=== PATIENT | female | born 1935 | race Caucasian/White ===

== ENCOUNTER 2017-04-19 10:40 | Inpatient (IN) | payer MEDICARE, OTHER ==
[2017-04-19] MEDS ORDERED: NITROGLYCERIN (SL) 0.4 MG TAB SL (11:00)
[2017-04-19] MEDS: FUROSEMIDE 40 MG INJ IV (11:00)
[2017-04-19 11:53] LABS: ADD MAN DIFF? NO
[2017-04-19 11:55] LABS: BASOPHILS % 0.2 % (0.0-2.0); EOSINOPHILS % 0.4 % (0.0-7.0); HEMATOCRIT 34.8 % (37.0-47.0); HEMOGLOBIN 11.3 g/dl (12.0-16.0); LYMPHOCYTES # 1.1 10^3/ul (0.8-2.9); LYMPHOCYTES % 13.5 % (15.0-51.0); MEAN CORPUSCULAR HEMOGLOBIN 28.9 pg (29.0-33.0); MEAN CORPUSCULAR HGB CONC 32.5 g/dl (32.0-37.0); MEAN PLATELET VOLUME 11.9 fl (7.4-10.4); MONOCYTE # 0.7 10^3/ul (0.3-0.9); MONOCYTES % 8.7 % (0.0-11.0); NEUTROPHIL # 6.4 10^3/ul (1.6-7.5); PLATELET COUNT 130 10^3/UL (140-415); RED BLOOD COUNT 3.91 10^6/ul (4.20-5.40); RED CELL DISTRIBUTION WIDTH 13.8 % (11.5-14.5)
[2017-04-19 11:55] LABS: WHITE BLOOD COUNT 8.3 10^3/ul (4.8-10.8)
[2017-04-19] MEDS: NITROGLYCERIN 2% 1 GM OINT PKT TD (12:02)
[2017-04-19 12:18] LABS: ANION GAP 14 (8-16); BLOOD UREA NITROGEN 18 mg/dl (7-20); CARBON DIOXIDE 26 mmol/L (21-31); CHLORIDE 102 mmol/L (97-110); CREATININE 1.13 mg/dl (0.44-1.00); GLUCOSE 210 mg/dl (70-220); POTASSIUM 4.8 mmol/L (3.5-5.1); SODIUM 137 mmol/L (135-144)
[2017-04-19 12:29] LABS: TROPONIN-I 0.038 ng/ml (0.00-0.12)
[2017-04-19] MEDS ORDERED: ONDANSETRON 4 MG INJ IV ×2 (13:30→14:30)
[2017-04-19] MEDS ORDERED: ACETAMINOPHEN 325 MG TAB PO ×2 (13:30→14:30)
[2017-04-19] MEDS ORDERED: DEXTROSE 50% 50 ML SYRINGE IV ×2 (14:30)
[2017-04-19] MEDS ORDERED: GLUCOSE GEL 15 GRAM TUBE PO ×2 (14:30)
[2017-04-19] MEDS ORDERED: GLUCOSE GEL 15 GRAM TUBE BUCCAL (14:30)
[2017-04-19] MEDS ORDERED: GLUCAGON 1 MG INJ IM (14:30)
[2017-04-19] MEDS ORDERED: ALBUTEROL/IPRATROPIUM (NEB) 3 ML AMP HHN (14:30)
[2017-04-19] MEDS ORDERED: INSULIN GLARGINE [LANtus] 3 ML PEN SC (14:30)
[2017-04-19] MEDS ORDERED: NACL 0.9% 3 ML SYG IV (14:30)
[2017-04-19] MEDS ORDERED: morphine 2 MG INJ IV (14:30)
[2017-04-19] MEDS: BUMETANIDE 1 MG INJ IV ×2 (15:22→20:14)
[2017-04-19] MEDS: METHYLPREDNISOLONE 40 MG INJ IV (15:23)
[2017-04-19 15:33] LABS: AADO2 Arterial 78.1 mmHg (7.0-24.0); Allen Test ACCEPTAB; Arterial Base Excess 0.4 mmol/L (-3.0-3); Arterial Blood Gas Oxygen Sat 96.3 mmHG (95.0-100.0); Arterial COHb 0.4 % (0.0-3.0); Arterial Fraction of Oxyhgb 95.8 % (93.0-99.0); Arterial HCO3 24.2 mmol/L (22.0-26.0); Arterial MetHb 0.1 % (0.0-1.5); Arterial Total Hemglobin 12.6 g/dl (12.0-18.0); Arterial pCO2 36.6 mmhg (35-45); MODE NASAL CANNULA; Site Right Radial
[2017-04-19] MEDS: INSULIN ASPART [NOVOLOG] 3 ML PEN SC ×2 (18:05→20:33)
[2017-04-19] MEDS: NPH, HUMAN INSULIN ISOPHANE 3ML VIAL SC (18:31)
[2017-04-19 19:31] LABS: CREATINE KINASE 85 IU/L (23-200)
[2017-04-19 19:43] LABS: TROPONIN-I 0.051 ng/ml (0.00-0.12)
[2017-04-19] MEDS: FAMOTIDINE 20 MG TAB PO (20:15)
[2017-04-19] MEDS: RIVAROXABAN 20 MG TABLET PO (20:15)
[2017-04-19] MEDS: HEPARIN 5,000 UNIT/0.5 ML VIAL SC (20:33)
[2017-04-19] MEDS: MONTELUKAST 10 MG TAB PO (21:14)
[2017-04-19] MEDS: ALBUTEROL/IPRATROPIUM (NEB) 3 ML AMP HHN (21:57)
[2017-04-19 23:07] LABS: CREATINE KINASE 96 IU/L (23-200)
[2017-04-19 23:19] LABS: CK INDEX 1.7; CK-MB 1.66 ng/ml (0.0-2.4); TROPONIN-I 0.046 ng/ml (0.00-0.12)
[2017-04-20] MEDS: ALBUTEROL/IPRATROPIUM (NEB) 3 ML AMP HHN ×6 (01:10→21:04)
[2017-04-20] MEDS: ACCU-CHEK XX (01:14)
[2017-04-20] MEDS: INSULIN ASPART [NOVOLOG] 3 ML PEN SC ×8 (01:35→20:52)
[2017-04-20] MEDS: BUMETANIDE 1 MG INJ IV ×2 (05:54→17:11)
[2017-04-20] MEDS: HEPARIN 5,000 UNIT/0.5 ML VIAL SC (08:34)
[2017-04-20] MEDS: INSULIN GLARGINE [LANtus] 3 ML PEN SC (08:34)
[2017-04-20] MEDS: CLOPIDOGREL 75 MG TAB PO (08:37)
[2017-04-20] MEDS: AMIODARONE 200 MG TAB PO (08:37)
[2017-04-20] MEDS: FAMOTIDINE 20 MG TAB PO ×2 (08:37→20:50)
[2017-04-20 09:40] LABS: ADD MAN DIFF? NO
[2017-04-20 09:47] LABS: WHITE BLOOD COUNT 8.4 10^3/ul (4.8-10.8)
[2017-04-20 09:47] LABS: HEMATOCRIT 34.2 % (37.0-47.0); HEMOGLOBIN 11.5 g/dl (12.0-16.0); LYMPHOCYTES # 0.7 10^3/ul (0.8-2.9); LYMPHOCYTES % 8.7 % (15.0-51.0); MEAN CORPUSCULAR HEMOGLOBIN 29.5 pg (29.0-33.0); MEAN CORPUSCULAR HGB CONC 33.6 g/dl (32.0-37.0); MEAN CORPUSCULAR VOLUME 87.7 fl (82.0-101.0); MEAN PLATELET VOLUME 12.8 fl (7.4-10.4); MONOCYTE # 0.7 10^3/ul (0.3-0.9); NEUTROPHILS % 82.9 % (39.0-77.0); PLATELET COUNT 143 10^3/UL (140-415)
[2017-04-20 09:59] LABS: HEMOGLOBIN A1C 7.9 % (0-5.9)
[2017-04-20 10:09] LABS: ALANINE AMINOTRANSFERASE 54 IU/L (13-69); ALBUMIN 3.6 g/dl (3.3-4.9); ALBUMIN/GLOBULIN RATIO 0.94; ALKALINE PHOSPHATASE 68 IU/L (42-121); ANION GAP 17 (8-16); ASPARTATE AMINO TRANSFERASE 25 IU/L (15-46); BILIRUBIN,INDIRECT 0.6 mg/dl (0-1.1); BILIRUBIN,TOTAL 0.6 mg/dl (0.2-1.3); BLOOD UREA NITROGEN 23 mg/dl (7-20); CALCIUM 8.7 mg/dl (8.4-10.2); CARBON DIOXIDE 26 mmol/L (21-31); CHLORIDE 97 mmol/L (97-110); CHOL/HDL RATIO 4.4 RATIO; CHOLESTEROL 220 mg/dl (100-200); GLUCOSE 286 mg/dl (70-220); HDL CHOLESTEROL 49 mg/dl (33-92); LDL CHOLESTEROL,CALCULATED 152 mg/dl; MAGNESIUM 2.1 mg/dl (1.7-2.5); PHOSPHORUS 3.2 mg/dl (2.5-4.9); POTASSIUM 4.1 mmol/L (3.5-5.1); SODIUM 136 mmol/L (135-144); TOTAL PROTEIN 7.4 g/dl (6.1-8.1); TRIGLYCERIDES 95 mg/dl (0-149)
[2017-04-20 11:16] LABS: THYROID STIMULATING HORMONE 0.853 MIU/L (0.465-4.680)
[2017-04-20] MEDS: LOSARTAN 25 MG TAB PO (12:00)
[2017-04-20] MEDS: GABAPENTIN 100 MG CAP PO ×2 (12:23→20:50)
[2017-04-20] MEDS: RIVAROXABAN 20 MG TABLET PO (17:26)
[2017-04-20] MEDS: BACLOFEN 10 MG TAB PO (17:38)
[2017-04-20] MEDS: MONTELUKAST 10 MG TAB PO (20:50)
[2017-04-21] MEDS: ALBUTEROL/IPRATROPIUM (NEB) 3 ML AMP HHN ×6 (01:06→20:44)
[2017-04-21] MEDS: ACCU-CHEK XX (02:00)
[2017-04-21] MEDS: BUMETANIDE 1 MG INJ IV ×2 (05:46→05:53)
[2017-04-21] MEDS: INSULIN ASPART [NOVOLOG] 3 ML PEN SC ×7 (08:00→21:00)
[2017-04-21 08:14] LABS: ADD MAN DIFF? NO
[2017-04-21 08:18] LABS: WHITE BLOOD COUNT 8.1 10^3/ul (4.8-10.8)
[2017-04-21 08:18] LABS: BASOPHILS % 0.1 % (0.0-2.0); EOSINOPHILS # 0.2 10^3/ul (0.0-0.5); EOSINOPHILS % 2.6 % (0.0-7.0); HEMATOCRIT 35.6 % (37.0-47.0); HEMOGLOBIN 11.7 g/dl (12.0-16.0); LYMPHOCYTES # 1.7 10^3/ul (0.8-2.9); LYMPHOCYTES % 20.6 % (15.0-51.0); MEAN CORPUSCULAR HEMOGLOBIN 29.5 pg (29.0-33.0); MEAN CORPUSCULAR HGB CONC 32.9 g/dl (32.0-37.0); MEAN CORPUSCULAR VOLUME 89.7 fl (82.0-101.0); MEAN PLATELET VOLUME 12.5 fl (7.4-10.4); MONOCYTE # 0.7 10^3/ul (0.3-0.9); MONOCYTES % 9.2 % (0.0-11.0); NEUTROPHIL # 5.4 10^3/ul (1.6-7.5); NEUTROPHILS % 67.3 % (39.0-77.0); PLATELET COUNT 155 10^3/UL (140-415); RED BLOOD COUNT 3.97 10^6/ul (4.20-5.40); RED CELL DISTRIBUTION WIDTH 13.9 % (11.5-14.5)
[2017-04-21 08:46] LABS: ANION GAP 14 (8-16); BLOOD UREA NITROGEN 34 mg/dl (7-20); CARBON DIOXIDE 29 mmol/L (21-31); CHLORIDE 98 mmol/L (97-110); CREATININE 1.45 mg/dl (0.44-1.00); GLUCOSE 144 mg/dl (70-220); SODIUM 136 mmol/L (135-144)
[2017-04-21] MEDS: INSULIN GLARGINE [LANtus] 3 ML PEN SC (08:58)
[2017-04-21] MEDS: GABAPENTIN 100 MG CAP PO ×2 (09:14→13:18)
[2017-04-21] MEDS: CLOPIDOGREL 75 MG TAB PO (09:14)
[2017-04-21] MEDS: FAMOTIDINE 20 MG TAB PO ×2 (09:15→21:23)
[2017-04-21] MEDS: AMIODARONE 200 MG TAB PO (09:15)
[2017-04-21] MEDS: LOSARTAN 25 MG TAB PO (09:16)
[2017-04-21] MEDS ORDERED: BUMETANIDE 1 MG TAB PO (13:00)
[2017-04-21] MEDS: BUMETANIDE 0.5 MG TAB PO (13:20)
[2017-04-21] MEDS: LINAGLIPTIN 5 MG TABLET PO (15:55)
[2017-04-21] MEDS: RIVAROXABAN 20 MG TABLET PO (18:10)
[2017-04-21] MEDS: REPAGLINIDE 1 MG TAB PO (18:10)
[2017-04-21] MEDS: SALMETEROL/FLUTICASONE 250/50 INHA INH ×2 (18:10→21:22)
[2017-04-21] MEDS: GABAPENTIN 300 MG CAP PO (21:22)
[2017-04-21] MEDS: MONTELUKAST 10 MG TAB PO (21:23)
[2017-04-21] MEDS: METOPROLOL (XL) 25 MG TAB PO (21:23)
[2017-04-22] MEDS: ALBUTEROL/IPRATROPIUM (NEB) 3 ML AMP HHN ×5 (01:52→21:31)
[2017-04-22] MEDS: ACCU-CHEK XX (02:00)
[2017-04-22] MEDS: REPAGLINIDE 1 MG TAB PO ×3 (07:08→17:39)
[2017-04-22] MEDS: INSULIN GLARGINE [LANtus] 3 ML PEN SC (08:33)
[2017-04-22] MEDS: INSULIN ASPART [NOVOLOG] 3 ML PEN SC ×4 (08:34→20:47)
[2017-04-22] MEDS: EMPAGLIFLOZIN 10 MG TABLET PO (08:58)
[2017-04-22] MEDS: CLOPIDOGREL 75 MG TAB PO (08:58)
[2017-04-22] MEDS: SALMETEROL/FLUTICASONE 250/50 INHA INH ×2 (08:59→20:44)
[2017-04-22] MEDS: AMIODARONE 200 MG TAB PO (09:00)
[2017-04-22] MEDS: METOPROLOL (XL) 25 MG TAB PO ×2 (09:00→20:45)
[2017-04-22] MEDS: GABAPENTIN 300 MG CAP PO ×3 (09:01→20:44)
[2017-04-22] MEDS: LINAGLIPTIN 5 MG TABLET PO (09:01)
[2017-04-22] MEDS: FAMOTIDINE 20 MG TAB PO ×2 (09:01→20:44)
[2017-04-22] MEDS: LOSARTAN 25 MG TAB PO (09:09)
[2017-04-22 09:12] LABS: ALANINE AMINOTRANSFERASE 47 IU/L (13-69); ALBUMIN 3.5 g/dl (3.3-4.9); ALBUMIN/GLOBULIN RATIO 0.92; ALKALINE PHOSPHATASE 79 IU/L (42-121); ANION GAP 16 (8-16); ASPARTATE AMINO TRANSFERASE 26 IU/L (15-46); BILIRUBIN,INDIRECT 0.4 mg/dl (0-1.1); BILIRUBIN,TOTAL 0.4 mg/dl (0.2-1.3); BLOOD UREA NITROGEN 41 mg/dl (7-20); CALCIUM 9.5 mg/dl (8.4-10.2); CARBON DIOXIDE 27 mmol/L (21-31); CHLORIDE 98 mmol/L (97-110); CREATININE 1.71 mg/dl (0.44-1.00); GLUCOSE 165 mg/dl (70-220); MAGNESIUM 2.2 mg/dl (1.7-2.5); POTASSIUM 4.4 mmol/L (3.5-5.1); SODIUM 137 mmol/L (135-144); TOTAL PROTEIN 7.3 g/dl (6.1-8.1)
[2017-04-22 09:16] LABS: B-TYPE NATRIURETIC PEPTIDE 1240 PG/ML (0-450)
[2017-04-22] MEDS: BUMETANIDE 0.5 MG TAB PO (10:30)
[2017-04-22] MEDS: RIVAROXABAN 20 MG TABLET PO (17:39)
[2017-04-22] MEDS: GUAIFENESIN/DM 5ML CUP PO (20:53)
[2017-04-22] MEDS: MONTELUKAST 10 MG TAB PO (21:51)
[2017-04-23] MEDS: ACCU-CHEK XX (02:00)
[2017-04-23] MEDS: ALBUTEROL/IPRATROPIUM (NEB) 3 ML AMP HHN ×6 (02:30→20:20)
[2017-04-23] MEDS: INSULIN ASPART [NOVOLOG] 3 ML PEN SC ×4 (08:00→20:13)
[2017-04-23] MEDS: SALMETEROL/FLUTICASONE 250/50 INHA INH ×2 (08:31→20:11)
[2017-04-23] MEDS: EMPAGLIFLOZIN 10 MG TABLET PO (08:32)
[2017-04-23] MEDS: FAMOTIDINE 20 MG TAB PO ×2 (08:32→20:11)
[2017-04-23] MEDS: REPAGLINIDE 1 MG TAB PO ×3 (08:33→17:15)
[2017-04-23] MEDS: GABAPENTIN 300 MG CAP PO ×3 (08:33→20:11)
[2017-04-23] MEDS: LINAGLIPTIN 5 MG TABLET PO (08:33)
[2017-04-23] MEDS: INSULIN GLARGINE [LANtus] 3 ML PEN SC (08:34)
[2017-04-23] MEDS: CLOPIDOGREL 75 MG TAB PO (08:37)
[2017-04-23] MEDS: METOPROLOL (XL) 25 MG TAB PO ×2 (08:37→20:12)
[2017-04-23] MEDS: AMIODARONE 200 MG TAB PO (08:37)
[2017-04-23 11:38] LABS: ANION GAP 14 (8-16); BLOOD UREA NITROGEN 40 mg/dl (7-20); CALCIUM 9.5 mg/dl (8.4-10.2); CARBON DIOXIDE 28 mmol/L (21-31); CHLORIDE 96 mmol/L (97-110); CREATININE 1.66 mg/dl (0.44-1.00); GLUCOSE 199 mg/dl (70-220); POTASSIUM 4.1 mmol/L (3.5-5.1); SODIUM 134 mmol/L (135-144)
[2017-04-23] MEDS: RIVAROXABAN 20 MG TABLET PO (17:15)
[2017-04-23] MEDS: MONTELUKAST 10 MG TAB PO (20:11)
[2017-04-23] MEDS: GUAIFENESIN/DM 5ML CUP PO (23:20)
[2017-04-24] MEDS: ALBUTEROL/IPRATROPIUM (NEB) 3 ML AMP HHN ×5 (00:33→17:52)
[2017-04-24 01:59] LABS: CREATINE KINASE 45 IU/L (23-200)
[2017-04-24 02:12] LABS: CK INDEX 1.4; CK-MB 0.64 ng/ml (0.0-2.4); TROPONIN-I 0.033 ng/ml (0.00-0.12)
[2017-04-24] MEDS: ACCU-CHEK XX (02:23)
[2017-04-24] MEDS: GUAIFENESIN/DM 5ML CUP PO (04:37)
[2017-04-24] MEDS: INSULIN ASPART [NOVOLOG] 3 ML PEN SC ×3 (08:00→17:37)
[2017-04-24] MEDS: CLOPIDOGREL 75 MG TAB PO (08:25)
[2017-04-24] MEDS: EMPAGLIFLOZIN 10 MG TABLET PO (08:25)
[2017-04-24] MEDS: REPAGLINIDE 1 MG TAB PO ×3 (08:25→17:36)
[2017-04-24] MEDS: GABAPENTIN 300 MG CAP PO ×2 (08:25→12:35)
[2017-04-24] MEDS: LINAGLIPTIN 5 MG TABLET PO (08:26)
[2017-04-24] MEDS: FAMOTIDINE 20 MG TAB PO (08:26)
[2017-04-24] MEDS: METOPROLOL (XL) 25 MG TAB PO (08:27)
[2017-04-24] MEDS: AMIODARONE 200 MG TAB PO (08:27)
[2017-04-24] MEDS: SALMETEROL/FLUTICASONE 250/50 INHA INH (08:28)
[2017-04-24 08:29] LABS: ADD MAN DIFF? NO
[2017-04-24] MEDS: INSULIN GLARGINE [LANtus] 3 ML PEN SC (08:29)
[2017-04-24 08:50] LABS: WHITE BLOOD COUNT 6.7 10^3/ul (4.8-10.8)
[2017-04-24 08:50] LABS: EOSINOPHILS # 0.2 10^3/ul (0.0-0.5); EOSINOPHILS % 3.6 % (0.0-7.0); HEMATOCRIT 35.5 % (37.0-47.0); HEMOGLOBIN 11.8 g/dl (12.0-16.0); LYMPHOCYTES # 1.6 10^3/ul (0.8-2.9); LYMPHOCYTES % 23.8 % (15.0-51.0); MEAN CORPUSCULAR HEMOGLOBIN 29.7 pg (29.0-33.0); MEAN CORPUSCULAR HGB CONC 33.2 g/dl (32.0-37.0); MEAN CORPUSCULAR VOLUME 89.4 fl (82.0-101.0); MEAN PLATELET VOLUME 12.3 fl (7.4-10.4); MONOCYTE # 0.7 10^3/ul (0.3-0.9); MONOCYTES % 10.2 % (0.0-11.0); NEUTROPHIL # 4.1 10^3/ul (1.6-7.5); NEUTROPHILS % 62.1 % (39.0-77.0); PLATELET COUNT 164 10^3/UL (140-415); RED BLOOD COUNT 3.97 10^6/ul (4.20-5.40)
[2017-04-24 09:34] LABS: CREATINE KINASE 43 IU/L (23-200)
[2017-04-24 09:47] LABS: CK INDEX 1.6; CK-MB 0.67 ng/ml (0.0-2.4); TROPONIN-I 0.037 ng/ml (0.00-0.12)
[2017-04-24 12:48] LABS: ANION GAP 15 (8-16); BLOOD UREA NITROGEN 34 mg/dl (7-20); CALCIUM 9.7 mg/dl (8.4-10.2); CARBON DIOXIDE 29 mmol/L (21-31); CHLORIDE 100 mmol/L (97-110); CREATININE 1.54 mg/dl (0.44-1.00); GLUCOSE 112 mg/dl (70-220); POTASSIUM 4.7 mmol/L (3.5-5.1); SODIUM 139 mmol/L (135-144)
[2017-04-24 13:00] LABS: CREATINE KINASE 45 IU/L (23-200)
[2017-04-24 13:13] LABS: CK INDEX 1.5; CK-MB 0.68 ng/ml (0.0-2.4); TROPONIN-I 0.022 ng/ml (0.00-0.12)
== END 2017-04-24 18:42 | disposition home health service (06) | DRG 291 ==
LOC: E/R 10:40 → MS4 13:27
DX: I13.0 Hypertensive heart and chronic kidney disease with heart failure and stage 1 through stage 4 chronic kidney disease, or unspecified chronic kidney disease (principal); I50.23 Acute on chronic systolic (congestive) heart failure; J96.91 Respiratory failure, unspecified with hypoxia; N17.9 Acute kidney failure, unspecified; J45.41 Moderate persistent asthma with (acute) exacerbation; Z68.41 Body mass index [BMI] 40.0-44.9, adult; E11.21 Type 2 diabetes mellitus with diabetic nephropathy; Z95.5 Presence of coronary angioplasty implant and graft; D63.8 Anemia in other chronic diseases classified elsewhere; E78.5 Hyperlipidemia, unspecified; Z91.14 Patient's other noncompliance with medication regimen; E66.9 Obesity, unspecified; I48.0 Paroxysmal atrial fibrillation; Z79.01 Long term (current) use of anticoagulants; N18.2 Chronic kidney disease, stage 2 (mild)
CPT/HCPCS: 36415; 36600; 71010; 80048; 80053; 80061; 82550; 82553; 82803; 82962; 83036; 83735; 83880; 84100; 84443; 84484; 85025; 93005; 93306; 93970; 94640; 96374; 96375; 97110; 97116; 97530; 99217; 99285-25; G0378

== ENCOUNTER 2017-10-12 12:45 | Inpatient (IN) | payer MEDICARE, OTHER ==
[2017-10-12] MEDS ORDERED: NITROGLYCERIN (SL) 0.4 MG TAB SL (13:00)
[2017-10-12 13:13] LABS: ADD MAN DIFF? NO; BASOPHILS % 0.1 % (0.0-2.0); EOSINOPHILS % 0.5 % (0.0-7.0); HEMATOCRIT 36.9 % (37.0-47.0); HEMOGLOBIN 11.6 g/dl (12.0-16.0); LYMPHOCYTES # 1.7 10^3/ul (0.8-2.9); LYMPHOCYTES % 21.1 % (15.0-51.0); MEAN CORPUSCULAR HEMOGLOBIN 28.6 pg (29.0-33.0); MEAN CORPUSCULAR HGB CONC 31.4 g/dl (32.0-37.0); MEAN CORPUSCULAR VOLUME 91.1 fl (82.0-101.0); MEAN PLATELET VOLUME 12.3 fl (7.4-10.4); MONOCYTE # 0.8 10^3/ul (0.3-0.9); MONOCYTES % 9.8 % (0.0-11.0); NEUTROPHIL # 5.4 10^3/ul (1.6-7.5); NEUTROPHILS % 67.9 % (39.0-77.0); PLATELET COUNT 161 10^3/UL (140-415); RED BLOOD COUNT 4.05 10^6/ul (4.20-5.40); RED CELL DISTRIBUTION WIDTH 14.9 % (11.5-14.5)
[2017-10-12] MEDS: ASPIRIN 81 MG TAB PO (13:19)
[2017-10-12] MEDS: FUROSEMIDE 40 MG INJ IV ×2 (13:19→18:35)
[2017-10-12] MEDS: NITROGLYCERIN 2% 1 GM OINT PKT TD (13:19)
[2017-10-12 13:34] LABS: ANION GAP 15 (8-16); BLOOD UREA NITROGEN 28 mg/dl (7-20); CALCIUM 8.8 mg/dl (8.4-10.2); CARBON DIOXIDE 25 mmol/L (21-31); CHLORIDE 101 mmol/L (97-110); CREATININE 1.56 mg/dl (0.44-1.00); GLUCOSE 267 mg/dl (70-220); POTASSIUM 4.1 mmol/L (3.5-5.1); SODIUM 137 mmol/L (135-144)
[2017-10-12 13:41] LABS: LACTIC ACID 3.5 mmol/L (0.5-2.0)
[2017-10-12 13:45] LABS: TROPONIN-I 0.075 ng/ml (0.000-0.120)
[2017-10-12] MEDS: DILTIAZEM 50 MG INJ IV (14:54)
[2017-10-12] MEDS: DILTIAZEM 30 MG TAB PO (14:54)
[2017-10-12] MEDS ORDERED: ACETAMINOPHEN 325 MG TAB PO ×2 (15:00→17:30)
[2017-10-12] MEDS ORDERED: ONDANSETRON 4 MG INJ IV (15:00)
[2017-10-12] MEDS ORDERED: DILTIAZEM-D5W 125MG/125ML DRIP 125 ML IV (17:30)
[2017-10-12] MEDS ORDERED: HYDROCODONE/APAP (5/325) TAB PO (17:30)
[2017-10-12] MEDS ORDERED: NACL 0.9% 3 ML SYG IV (17:30)
[2017-10-12] MEDS ORDERED: ONDANSETRON 4 MG TAB PO (17:30)
[2017-10-12 17:51] LABS: HEMOGLOBIN A1C 8.5 % (0-5.9)
[2017-10-12] MEDS ORDERED: GLUCOSE GEL 15 GRAM TUBE PO ×2 (18:00)
[2017-10-12] MEDS ORDERED: GLUCAGON 1 MG INJ IM (18:00)
[2017-10-12] MEDS ORDERED: DEXTROSE 50% 50 ML SYRINGE IV ×2 (18:00)
[2017-10-12] MEDS ORDERED: GLUCOSE GEL 15 GRAM TUBE BUCCAL (18:00)
[2017-10-12 18:08] LABS: B-TYPE NATRIURETIC PEPTIDE 4490 PG/ML (0-450)
[2017-10-12 18:08] LABS: LACTIC ACID 2.9 mmol/L (0.5-2.0)
[2017-10-12] MEDS: RIVAROXABAN 20 MG TABLET PO (18:36)
[2017-10-12] MEDS: DILTIAZEM-D5W 125MG/125ML DRIP 125 ML IV (18:59)
[2017-10-12] MEDS: INSULIN ASPART [NOVOLOG] 3 ML PEN SC ×2 (19:06→22:02)
[2017-10-12 19:53] LABS: LACTIC ACID 2.4 mmol/L (0.5-2.0)
[2017-10-12 20:18] LABS: TROPONIN-I 0.121 ng/ml (0.000-0.120)
[2017-10-12] MEDS: MONTELUKAST 10 MG TAB PO (20:20)
[2017-10-12] MEDS: RANOLAZINE (SR) 500 MG TAB PO (20:20)
[2017-10-12] MEDS: DOXAZOSIN 1 MG TAB PO ×2 (20:22→21:00)
[2017-10-12] MEDS: SACUBITRIL/VALSARTAN (24mg-26mg) TABLET PO (21:00)
[2017-10-13 01:43] LABS: TROPONIN-I 0.144 ng/ml (0.000-0.120)
[2017-10-13] MEDS: ACCU-CHEK XX (02:00)
[2017-10-13] MEDS: FUROSEMIDE 40 MG INJ IV ×2 (06:27→17:05)
[2017-10-13 06:42] LABS: ADD MAN DIFF? NO
[2017-10-13 06:50] LABS: BASOPHILS % 0.1 % (0.0-2.0); EOSINOPHILS # 0.1 10^3/ul (0.0-0.5); EOSINOPHILS % 1.8 % (0.0-7.0); HEMATOCRIT 32.8 % (37.0-47.0); HEMOGLOBIN 10.4 g/dl (12.0-16.0); LYMPHOCYTES # 1.6 10^3/ul (0.8-2.9); LYMPHOCYTES % 21.8 % (15.0-51.0); MEAN CORPUSCULAR HEMOGLOBIN 29.1 pg (29.0-33.0); MEAN CORPUSCULAR HGB CONC 31.7 g/dl (32.0-37.0); MEAN CORPUSCULAR VOLUME 91.6 fl (82.0-101.0); MEAN PLATELET VOLUME 12.5 fl (7.4-10.4); MONOCYTE # 0.7 10^3/ul (0.3-0.9); MONOCYTES % 9.8 % (0.0-11.0); NEUTROPHIL # 4.7 10^3/ul (1.6-7.5); NEUTROPHILS % 66.1 % (39.0-77.0); PLATELET COUNT 134 10^3/UL (140-415); RED BLOOD COUNT 3.58 10^6/ul (4.20-5.40); RED CELL DISTRIBUTION WIDTH 14.9 % (11.5-14.5)
[2017-10-13 06:50] LABS: WHITE BLOOD COUNT 7.1 10^3/ul (4.8-10.8)
[2017-10-13 07:15] LABS: ANION GAP 12 (8-16); BLOOD UREA NITROGEN 25 mg/dl (7-20); CARBON DIOXIDE 31 mmol/L (21-31); CHLORIDE 98 mmol/L (97-110); GLUCOSE 200 mg/dl (70-220); MAGNESIUM 1.9 mg/dl (1.7-2.5); POTASSIUM 3.7 mmol/L (3.5-5.1); SODIUM 137 mmol/L (135-144)
[2017-10-13] MEDS: RANOLAZINE (SR) 500 MG TAB PO ×2 (08:17→20:14)
[2017-10-13] MEDS: AMIODARONE 200 MG TAB PO ×3 (08:17→20:15)
[2017-10-13] MEDS: INSULIN ASPART [NOVOLOG] 3 ML PEN SC ×4 (08:22→20:09)
[2017-10-13] MEDS: SACUBITRIL/VALSARTAN (24mg-26mg) TABLET PO ×2 (08:31→20:16)
[2017-10-13] MEDS ORDERED: LOSARTAN 25 MG TAB PO (09:00)
[2017-10-13] MEDS: ALBUTEROL/IPRATROPIUM (NEB) 3 ML AMP HHN ×3 (11:11→19:43)
[2017-10-13] MEDS: GUAIFENESIN LA 600 MG TABSR PO ×2 (12:30→20:14)
[2017-10-13] MEDS: RIVAROXABAN 20 MG TABLET PO (17:05)
[2017-10-13] MEDS: LEVALBUTEROL (NEB) 0.63 MG/3 ML AMP HHN (20:00)
[2017-10-13] MEDS: INSULIN GLARGINE [LANtus] 3 ML PEN SC (20:09)
[2017-10-13] MEDS: DOXAZOSIN 1 MG TAB PO ×2 (20:15→20:21)
[2017-10-13] MEDS: MONTELUKAST 10 MG TAB PO (20:16)
[2017-10-13] MEDS: DILTIAZEM-D5W 125MG/125ML DRIP 125 ML IV (21:33)
[2017-10-14] MEDS: DOXAZOSIN 1 MG TAB PO ×2 (00:21→20:48)
[2017-10-14] MEDS: LEVALBUTEROL (NEB) 0.63 MG/3 ML AMP HHN ×5 (00:58→19:20)
[2017-10-14] MEDS: ACCU-CHEK XX (01:20)
[2017-10-14] MEDS: FUROSEMIDE 40 MG INJ IV ×2 (06:24→17:01)
[2017-10-14 07:23] LABS: ANION GAP 12 (8-16); BLOOD UREA NITROGEN 21 mg/dl (7-20); CALCIUM 7.9 mg/dl (8.4-10.2); CARBON DIOXIDE 29 mmol/L (21-31); CHLORIDE 98 mmol/L (97-110); CREATININE 1.32 mg/dl (0.44-1.00); GLUCOSE 183 mg/dl (70-220); PHOSPHORUS 3.3 mg/dl (2.5-4.9); POTASSIUM 3.7 mmol/L (3.5-5.1); SODIUM 135 mmol/L (135-144)
[2017-10-14] MEDS: RANOLAZINE (SR) 500 MG TAB PO ×2 (08:17→20:45)
[2017-10-14] MEDS: SACUBITRIL/VALSARTAN (24mg-26mg) TABLET PO ×2 (08:17→20:45)
[2017-10-14] MEDS: AMIODARONE 200 MG TAB PO ×3 (08:17→20:49)
[2017-10-14] MEDS: INSULIN ASPART [NOVOLOG] 3 ML PEN SC ×4 (08:28→20:54)
[2017-10-14] MEDS: DILTIAZEM 30 MG TAB PO ×2 (14:35→17:01)
[2017-10-14] MEDS: RIVAROXABAN 20 MG TABLET PO (17:00)
[2017-10-14] MEDS: MONTELUKAST 10 MG TAB PO (20:46)
[2017-10-14] MEDS: INSULIN GLARGINE [LANtus] 3 ML PEN SC (20:55)
[2017-10-15] MEDS: DILTIAZEM 30 MG TAB PO ×4 (00:55→17:31)
[2017-10-15] MEDS: LEVALBUTEROL (NEB) 0.63 MG/3 ML AMP HHN ×5 (01:42→20:27)
[2017-10-15] MEDS: ACCU-CHEK XX (02:00)
[2017-10-15] MEDS: FUROSEMIDE 40 MG INJ IV ×2 (06:22→17:31)
[2017-10-15] MEDS: INSULIN ASPART [NOVOLOG] 3 ML PEN SC ×5 (08:47→17:44)
[2017-10-15] MEDS: AMIODARONE 200 MG TAB PO ×3 (08:59→23:43)
[2017-10-15] MEDS: RANOLAZINE (SR) 500 MG TAB PO ×2 (09:00→23:42)
[2017-10-15] MEDS: SACUBITRIL/VALSARTAN (24mg-26mg) TABLET PO ×2 (09:00→23:45)
[2017-10-15] MEDS: BUMETANIDE 6 MG in DEXTROSE 5% 36 ML IV (09:14)
[2017-10-15] MEDS: RIVAROXABAN 20 MG TABLET PO (17:28)
[2017-10-15] MEDS: MONTELUKAST 10 MG TAB PO (23:43)
[2017-10-16] MEDS: INSULIN GLARGINE [LANtus] 3 ML PEN SC ×2 (00:04→22:10)
[2017-10-16] MEDS: ACCU-CHEK XX ×2 (00:49→23:55)
[2017-10-16] MEDS: LEVALBUTEROL (NEB) 0.63 MG/3 ML AMP HHN ×4 (01:32→19:35)
[2017-10-16] MEDS: DILTIAZEM 30 MG TAB PO ×5 (06:00→23:38)
[2017-10-16 06:30] LABS: ADD MAN DIFF? NO
[2017-10-16 06:36] LABS: WHITE BLOOD COUNT 7.8 10^3/ul (4.8-10.8)
[2017-10-16 06:36] LABS: BASOPHILS % 0.3 % (0.0-2.0); EOSINOPHILS # 0.2 10^3/ul (0.0-0.5); EOSINOPHILS % 2.6 % (0.0-7.0); HEMATOCRIT 34.7 % (37.0-47.0); HEMOGLOBIN 11.3 g/dl (12.0-16.0); LYMPHOCYTES # 1.6 10^3/ul (0.8-2.9); LYMPHOCYTES % 20.9 % (15.0-51.0); MEAN CORPUSCULAR HEMOGLOBIN 29.4 pg (29.0-33.0); MEAN CORPUSCULAR HGB CONC 32.6 g/dl (32.0-37.0); MEAN CORPUSCULAR VOLUME 90.1 fl (82.0-101.0); MEAN PLATELET VOLUME 12.7 fl (7.4-10.4); MONOCYTE # 0.8 10^3/ul (0.3-0.9); MONOCYTES % 9.6 % (0.0-11.0); NEUTROPHIL # 5.2 10^3/ul (1.6-7.5); NEUTROPHILS % 66.1 % (39.0-77.0); PLATELET COUNT 159 10^3/UL (140-415); RED BLOOD COUNT 3.85 10^6/ul (4.20-5.40); RED CELL DISTRIBUTION WIDTH 14.6 % (11.5-14.5)
[2017-10-16] MEDS: FUROSEMIDE 40 MG INJ IV ×2 (06:49→17:51)
[2017-10-16 06:53] LABS: ANION GAP 12 (8-16); BLOOD UREA NITROGEN 21 mg/dl (7-20); CALCIUM 7.7 mg/dl (8.4-10.2); CARBON DIOXIDE 29 mmol/L (21-31); CHLORIDE 97 mmol/L (97-110); CREATININE 1.41 mg/dl (0.44-1.00); GLUCOSE 123 mg/dl (70-220); POTASSIUM 3.6 mmol/L (3.5-5.1); SODIUM 134 mmol/L (135-144)
[2017-10-16 07:51] LABS: MAGNESIUM 2.1 mg/dl (1.7-2.5)
[2017-10-16] MEDS: RANOLAZINE (SR) 500 MG TAB PO ×2 (08:27→21:45)
[2017-10-16] MEDS: SACUBITRIL/VALSARTAN (24mg-26mg) TABLET PO ×2 (08:27→21:50)
[2017-10-16] MEDS: AMIODARONE 200 MG TAB PO ×3 (08:28→21:45)
[2017-10-16] MEDS: INSULIN ASPART [NOVOLOG] 3 ML PEN SC ×8 (08:45→22:00)
[2017-10-16] MEDS: FAMOTIDINE 20 MG TAB PO (12:38)
[2017-10-16] MEDS: RIVAROXABAN 20 MG TABLET PO (17:50)
[2017-10-16] MEDS: DOXAZOSIN 1 MG TAB PO (21:46)
[2017-10-16] MEDS: MONTELUKAST 10 MG TAB PO (21:46)
[2017-10-16] MEDS: ONDANSETRON 4 MG INJ IV ×2 (23:37)
[2017-10-16] MEDS ORDERED: FAMOTIDINE 20 MG TAB PO (23:55)
[2017-10-17] MEDS: FAMOTIDINE 20 MG TAB PO ×2 (00:34→08:09)
[2017-10-17] MEDS: AL HYDROX/MG HYDROX/SIMETH 30 ML CUP PO (00:34)
[2017-10-17] MEDS: LEVALBUTEROL (NEB) 0.63 MG/3 ML AMP HHN ×4 (02:34→19:25)
[2017-10-17] MEDS: DILTIAZEM 30 MG TAB PO ×2 (05:56→12:31)
[2017-10-17] MEDS: FUROSEMIDE 40 MG INJ IV ×2 (06:28→17:28)
[2017-10-17 07:19] LABS: ADD MAN DIFF? NO
[2017-10-17 07:24] LABS: BASOPHILS % 0.2 % (0.0-2.0); EOSINOPHILS # 0.1 10^3/ul (0.0-0.5); EOSINOPHILS % 2.2 % (0.0-7.0); HEMOGLOBIN 10.7 g/dl (12.0-16.0); LYMPHOCYTES # 1.4 10^3/ul (0.8-2.9); LYMPHOCYTES % 25.4 % (15.0-51.0); MEAN CORPUSCULAR HEMOGLOBIN 29.3 pg (29.0-33.0); MEAN CORPUSCULAR HGB CONC 32.4 g/dl (32.0-37.0); MEAN CORPUSCULAR VOLUME 90.4 fl (82.0-101.0); MEAN PLATELET VOLUME 12.7 fl (7.4-10.4); MONOCYTE # 0.6 10^3/ul (0.3-0.9); MONOCYTES % 10.6 % (0.0-11.0); NEUTROPHIL # 3.4 10^3/ul (1.6-7.5); NEUTROPHILS % 61.1 % (39.0-77.0); PLATELET COUNT 147 10^3/UL (140-415); RED BLOOD COUNT 3.65 10^6/ul (4.20-5.40); RED CELL DISTRIBUTION WIDTH 14.8 % (11.5-14.5)
[2017-10-17 07:24] LABS: WHITE BLOOD COUNT 5.6 10^3/ul (4.8-10.8)
[2017-10-17 07:44] LABS: ANION GAP 10 (8-16); BLOOD UREA NITROGEN 21 mg/dl (7-20); CALCIUM 7.5 mg/dl (8.4-10.2); CARBON DIOXIDE 28 mmol/L (21-31); CHLORIDE 99 mmol/L (97-110); GLUCOSE 120 mg/dl (70-220); POTASSIUM 3.3 mmol/L (3.5-5.1); SODIUM 134 mmol/L (135-144)
[2017-10-17] MEDS: AMIODARONE 200 MG TAB PO ×3 (08:08→21:25)
[2017-10-17] MEDS: RANOLAZINE (SR) 500 MG TAB PO ×2 (08:09→21:24)
[2017-10-17] MEDS: SACUBITRIL/VALSARTAN (24mg-26mg) TABLET PO ×3 (08:09→21:26)
[2017-10-17] MEDS: INSULIN ASPART [NOVOLOG] 3 ML PEN SC ×7 (08:11→21:00)
[2017-10-17] MEDS: POTASSIUM CHLORIDE (SR) 20 MEQ TAB PO (12:31)
[2017-10-17 13:15] LABS: ADD UMIC NO; UR ASCORBIC ACID NEGATIVE (NEGATIVE); UR BILIRUBIN (Dip) NEGATIVE (NEGATIVE); UR BLOOD (Dip) NEGATIVE (NEGATIVE); UR CLARITY CLEAR (CLEAR); UR COLOR YELLOW (YELLOW); UR GLUCOSE (Dip) NEGATIVE (NEGATIVE); UR KETONES (Dip) NEGATIVE (NEGATIVE); UR LEUKOCYTE ESTERASE (Dip) NEGATIVE Leu/ul (NEGATIVE); UR NITRITE (Dip) NEGATIVE (NEGATIVE); UR SPECIFIC GRAVITY (Dip) 1.009 (1.003-1.030); UR TOTAL PROTEIN (Dip) NEGATIVE (NEGATIVE); UR UROBILINOGEN (Dip) NEGATIVE (NEGATIVE)
[2017-10-17] MEDS: NYSTATIN 30 GM POWDER BTL TOP ×2 (14:28→21:26)
[2017-10-17] MEDS ORDERED: DILTIAZEM 30 MG TAB PO (15:30)
[2017-10-17] MEDS: RIVAROXABAN 20 MG TABLET PO (17:27)
[2017-10-17] MEDS: MONTELUKAST 10 MG TAB PO (21:24)
[2017-10-17] MEDS: INSULIN GLARGINE [LANtus] 3 ML PEN SC (21:30)
[2017-10-18] MEDS: LEVALBUTEROL (NEB) 0.63 MG/3 ML AMP HHN ×4 (00:20→19:26)
[2017-10-18] MEDS: ACCU-CHEK XX (02:00)
[2017-10-18] MEDS: FUROSEMIDE 40 MG INJ IV ×2 (05:33→17:33)
[2017-10-18 08:18] LABS: ADD MAN DIFF? NO
[2017-10-18 08:24] LABS: BASOPHILS % 0.2 % (0.0-2.0); EOSINOPHILS # 0.1 10^3/ul (0.0-0.5); EOSINOPHILS % 1.6 % (0.0-7.0); HEMATOCRIT 32.6 % (37.0-47.0); HEMOGLOBIN 10.4 g/dl (12.0-16.0); LYMPHOCYTES # 1.1 10^3/ul (0.8-2.9); LYMPHOCYTES % 19.1 % (15.0-51.0); MEAN CORPUSCULAR HEMOGLOBIN 28.9 pg (29.0-33.0); MEAN CORPUSCULAR HGB CONC 31.9 g/dl (32.0-37.0); MEAN CORPUSCULAR VOLUME 90.6 fl (82.0-101.0); MEAN PLATELET VOLUME 12.8 fl (7.4-10.4); MONOCYTE # 0.7 10^3/ul (0.3-0.9); MONOCYTES % 11.4 % (0.0-11.0); NEUTROPHIL # 3.9 10^3/ul (1.6-7.5); NEUTROPHILS % 67.2 % (39.0-77.0); PLATELET COUNT 139 10^3/UL (140-415)
[2017-10-18 08:24] LABS: WHITE BLOOD COUNT 5.8 10^3/ul (4.8-10.8)
[2017-10-18] MEDS: INSULIN ASPART [NOVOLOG] 3 ML PEN SC ×7 (08:39→20:26)
[2017-10-18] MEDS: NYSTATIN 30 GM POWDER BTL TOP ×2 (08:46→20:19)
[2017-10-18] MEDS: FAMOTIDINE 20 MG TAB PO (08:46)
[2017-10-18 08:52] LABS: ANION GAP 12 (8-16); BLOOD UREA NITROGEN 22 mg/dl (7-20); CALCIUM 7.5 mg/dl (8.4-10.2); CARBON DIOXIDE 29 mmol/L (21-31); CHLORIDE 98 mmol/L (97-110); CREATININE 1.37 mg/dl (0.44-1.00); GLUCOSE 161 mg/dl (70-220); POTASSIUM 3.9 mmol/L (3.5-5.1); SODIUM 135 mmol/L (135-144)
[2017-10-18] MEDS: RANOLAZINE (SR) 500 MG TAB PO ×2 (08:56→20:21)
[2017-10-18 09:11] LABS: MAGNESIUM 2.2 mg/dl (1.7-2.5)
[2017-10-18] MEDS: SACUBITRIL/VALSARTAN (24mg-26mg) TABLET PO ×2 (10:25→20:34)
[2017-10-18] MEDS: AMIODARONE 200 MG TAB PO ×3 (10:25→20:21)
[2017-10-18] MEDS ORDERED: MAGNESIUM HYDROXIDE 30ML CUP PO (15:00)
[2017-10-18] MEDS: FUROSEMIDE 20 MG INJ IV (15:12)
[2017-10-18] MEDS: RIVAROXABAN 20 MG TABLET PO (17:33)
[2017-10-18] MEDS: INSULIN GLARGINE [LANtus] 3 ML PEN SC (20:24)
[2017-10-18] MEDS: MONTELUKAST 10 MG TAB PO (20:30)
[2017-10-19] MEDS: LEVALBUTEROL (NEB) 0.63 MG/3 ML AMP HHN ×4 (01:48→20:50)
[2017-10-19] MEDS: ACCU-CHEK XX (02:00)
[2017-10-19] MEDS: FUROSEMIDE 40 MG INJ IV (05:57)
[2017-10-19 06:22] LABS: ADD MAN DIFF? NO
[2017-10-19 06:27] LABS: WHITE BLOOD COUNT 4.9 10^3/ul (4.8-10.8)
[2017-10-19 06:27] LABS: BASOPHILS % 0.2 % (0.0-2.0); EOSINOPHILS # 0.1 10^3/ul (0.0-0.5); EOSINOPHILS % 1.6 % (0.0-7.0); HEMATOCRIT 32.5 % (37.0-47.0); HEMOGLOBIN 10.4 g/dl (12.0-16.0); LYMPHOCYTES # 1.3 10^3/ul (0.8-2.9); LYMPHOCYTES % 25.7 % (15.0-51.0); MEAN CORPUSCULAR HEMOGLOBIN 29.2 pg (29.0-33.0); MEAN CORPUSCULAR VOLUME 91.3 fl (82.0-101.0); MEAN PLATELET VOLUME 12.7 fl (7.4-10.4); MONOCYTE # 0.6 10^3/ul (0.3-0.9); MONOCYTES % 12.7 % (0.0-11.0); NEUTROPHIL # 2.9 10^3/ul (1.6-7.5); NEUTROPHILS % 59.6 % (39.0-77.0); PLATELET COUNT 139 10^3/UL (140-415); RED BLOOD COUNT 3.56 10^6/ul (4.20-5.40)
[2017-10-19 07:08] LABS: ANION GAP 9 (8-16); BLOOD UREA NITROGEN 20 mg/dl (7-20); CALCIUM 7.7 mg/dl (8.4-10.2); CARBON DIOXIDE 30 mmol/L (21-31); CHLORIDE 100 mmol/L (97-110); CREATININE 1.37 mg/dl (0.44-1.00); GLUCOSE 130 mg/dl (70-220); POTASSIUM 3.9 mmol/L (3.5-5.1); SODIUM 135 mmol/L (135-144)
[2017-10-19] MEDS: RANOLAZINE (SR) 500 MG TAB PO ×2 (08:13→20:17)
[2017-10-19] MEDS: SACUBITRIL/VALSARTAN (24mg-26mg) TABLET PO ×2 (08:13→20:17)
[2017-10-19] MEDS: FAMOTIDINE 20 MG TAB PO (08:13)
[2017-10-19] MEDS: AMIODARONE 200 MG TAB PO ×3 (08:13→20:16)
[2017-10-19] MEDS: INSULIN ASPART [NOVOLOG] 3 ML PEN SC ×7 (08:21→20:26)
[2017-10-19] MEDS: IPRATROPIUM (NEB) 0.5 MG/2.5 ML AMP HHN (11:21)
[2017-10-19] MEDS: NYSTATIN 30 GM POWDER BTL TOP ×2 (12:24→20:18)
[2017-10-19] MEDS: BUMETANIDE 3 MG in DEXTROSE 5% 18 ML IV (15:34)
[2017-10-19] MEDS: RIVAROXABAN 20 MG TABLET PO (17:14)
[2017-10-19] MEDS: MONTELUKAST 10 MG TAB PO (20:17)
[2017-10-19] MEDS: INSULIN GLARGINE [LANtus] 3 ML PEN SC (20:22)
[2017-10-20] MEDS: ACCU-CHEK XX ×2 (02:00→22:36)
[2017-10-20] MEDS: FUROSEMIDE 40 MG INJ IV (06:00)
[2017-10-20 07:03] LABS: ADD MAN DIFF? NO
[2017-10-20 07:19] LABS: WHITE BLOOD COUNT 5.5 10^3/ul (4.8-10.8)
[2017-10-20 07:19] LABS: BASOPHILS % 0.2 % (0.0-2.0); EOSINOPHILS # 0.1 10^3/ul (0.0-0.5); EOSINOPHILS % 2.2 % (0.0-7.0); HEMATOCRIT 34.9 % (37.0-47.0); HEMOGLOBIN 11.1 g/dl (12.0-16.0); LYMPHOCYTES # 1.8 10^3/ul (0.8-2.9); LYMPHOCYTES % 32.3 % (15.0-51.0); MEAN CORPUSCULAR HEMOGLOBIN 29.3 pg (29.0-33.0); MEAN CORPUSCULAR HGB CONC 31.8 g/dl (32.0-37.0); MEAN CORPUSCULAR VOLUME 92.1 fl (82.0-101.0); MEAN PLATELET VOLUME 12.5 fl (7.4-10.4); MONOCYTE # 0.6 10^3/ul (0.3-0.9); MONOCYTES % 10.5 % (0.0-11.0); NEUTROPHILS % 54.4 % (39.0-77.0); PLATELET COUNT 161 10^3/UL (140-415); RED BLOOD COUNT 3.79 10^6/ul (4.20-5.40); RED CELL DISTRIBUTION WIDTH 15.1 % (11.5-14.5)
[2017-10-20] MEDS: INSULIN ASPART [NOVOLOG] 3 ML PEN SC ×7 (07:55→22:30)
[2017-10-20 07:56] LABS: ANION GAP 14 (8-16); BLOOD UREA NITROGEN 17 mg/dl (7-20); CARBON DIOXIDE 32 mmol/L (21-31); CHLORIDE 95 mmol/L (97-110); CREATININE 1.36 mg/dl (0.44-1.00); GLUCOSE 116 mg/dl (70-220); POTASSIUM 4.1 mmol/L (3.5-5.1); SODIUM 137 mmol/L (135-144)
[2017-10-20 08:01] LABS: MAGNESIUM 2.6 mg/dl (1.7-2.5)
[2017-10-20 08:01] LABS: PHOSPHORUS 3.1 mg/dl (2.5-4.9)
[2017-10-20] MEDS: AMIODARONE 200 MG TAB PO ×3 (08:24→22:34)
[2017-10-20] MEDS: FAMOTIDINE 20 MG TAB PO (08:24)
[2017-10-20] MEDS: RANOLAZINE (SR) 500 MG TAB PO ×2 (08:24→22:33)
[2017-10-20] MEDS: SACUBITRIL/VALSARTAN (24mg-26mg) TABLET PO ×2 (08:24→22:33)
[2017-10-20] MEDS: NYSTATIN 30 GM POWDER BTL TOP ×2 (08:25→22:35)
[2017-10-20] MEDS: IPRATROPIUM (NEB) 0.5 MG/2.5 ML AMP HHN (11:18)
[2017-10-20] MEDS: LEVALBUTEROL (NEB) 0.63 MG/3 ML AMP HHN (11:18)
[2017-10-20] MEDS: BUMETANIDE 3 MG in DEXTROSE 5% 18 ML IV (11:26)
[2017-10-20] MEDS: RIVAROXABAN 20 MG TABLET PO (18:37)
[2017-10-20] MEDS: MONTELUKAST 10 MG TAB PO (22:35)
[2017-10-20] MEDS: INSULIN GLARGINE [LANtus] 3 ML PEN SC (22:45)
[2017-10-21] MEDS: FUROSEMIDE 40 MG INJ IV (06:43)
[2017-10-21] MEDS: INSULIN ASPART [NOVOLOG] 3 ML PEN SC ×7 (07:55→22:05)
[2017-10-21] MEDS: SACUBITRIL/VALSARTAN (24mg-26mg) TABLET PO (08:31)
[2017-10-21] MEDS: RANOLAZINE (SR) 500 MG TAB PO ×2 (08:31→20:43)
[2017-10-21] MEDS: AMIODARONE 200 MG TAB PO ×3 (08:32→20:42)
[2017-10-21] MEDS: FAMOTIDINE 20 MG TAB PO (08:32)
[2017-10-21] MEDS: NYSTATIN 30 GM POWDER BTL TOP (08:33)
[2017-10-21] MEDS: BUMETANIDE 3 MG in DEXTROSE 5% 18 ML IV (13:45)
[2017-10-21] MEDS: IPRATROPIUM (NEB) 0.5 MG/2.5 ML AMP HHN ×2 (16:03→22:28)
[2017-10-21] MEDS: LEVALBUTEROL (NEB) 0.63 MG/3 ML AMP HHN ×2 (16:04→22:28)
[2017-10-21] MEDS: RIVAROXABAN 20 MG TABLET PO (17:05)
[2017-10-21] MEDS: GUAIFENESIN LA 600 MG TABSR PO (20:41)
[2017-10-21] MEDS: AL HYDROX/MG HYDROX/SIMETH 30 ML CUP PO (20:42)
[2017-10-21] MEDS: MONTELUKAST 10 MG TAB PO (20:43)
[2017-10-21] MEDS: INSULIN GLARGINE [LANtus] 3 ML PEN SC (22:10)
[2017-10-22] MEDS: NYSTATIN 30 GM POWDER BTL TOP ×3 (00:15→20:32)
[2017-10-22] MEDS: SACUBITRIL/VALSARTAN (24mg-26mg) TABLET PO ×3 (00:15→20:31)
[2017-10-22] MEDS: ACCU-CHEK XX (02:47)
[2017-10-22] MEDS: BUMETANIDE 1 MG INJ IV ×2 (06:54→17:25)
[2017-10-22] MEDS: INSULIN ASPART [NOVOLOG] 3 ML PEN SC ×7 (07:37→20:32)
[2017-10-22] MEDS: FAMOTIDINE 20 MG TAB PO (08:49)
[2017-10-22] MEDS: RANOLAZINE (SR) 500 MG TAB PO ×2 (08:49→21:36)
[2017-10-22] MEDS: AMIODARONE 200 MG TAB PO ×3 (08:50→20:31)
[2017-10-22 14:57] LABS: ANION GAP 14 (8-16); BLOOD UREA NITROGEN 19 mg/dl (7-20); CALCIUM 8.5 mg/dl (8.4-10.2); CARBON DIOXIDE 29 mmol/L (21-31); CHLORIDE 100 mmol/L (97-110); CREATININE 1.37 mg/dl (0.44-1.00); GLUCOSE 142 mg/dl (70-220); MAGNESIUM 2.5 mg/dl (1.7-2.5); POTASSIUM 4.3 mmol/L (3.5-5.1); SODIUM 139 mmol/L (135-144)
[2017-10-22] MEDS: RIVAROXABAN 20 MG TABLET PO (17:24)
[2017-10-22] MEDS: MONTELUKAST 10 MG TAB PO (20:30)
[2017-10-22] MEDS: GUAIFENESIN LA 600 MG TABSR PO (20:31)
[2017-10-22] MEDS: INSULIN GLARGINE [LANtus] 3 ML PEN SC (20:35)
[2017-10-22] MEDS: LEVALBUTEROL (NEB) 0.63 MG/3 ML AMP HHN (21:28)
[2017-10-23] MEDS: ACCU-CHEK XX (02:00)
[2017-10-23] MEDS: BUMETANIDE 1 MG INJ IV (06:27)
[2017-10-23 06:40] LABS: ADD MAN DIFF? NO
[2017-10-23 06:42] LABS: BASOPHILS % 0.2 % (0.0-2.0); EOSINOPHILS # 0.1 10^3/ul (0.0-0.5); EOSINOPHILS % 2.1 % (0.0-7.0); HEMATOCRIT 35.5 % (37.0-47.0); HEMOGLOBIN 11.3 g/dl (12.0-16.0); LYMPHOCYTES # 1.5 10^3/ul (0.8-2.9); LYMPHOCYTES % 28.3 % (15.0-51.0); MEAN CORPUSCULAR HEMOGLOBIN 29.1 pg (29.0-33.0); MEAN CORPUSCULAR HGB CONC 31.8 g/dl (32.0-37.0); MEAN CORPUSCULAR VOLUME 91.5 fl (82.0-101.0); MEAN PLATELET VOLUME 12.2 fl (7.4-10.4); MONOCYTE # 0.6 10^3/ul (0.3-0.9); MONOCYTES % 11.4 % (0.0-11.0); NEUTROPHILS % 57.6 % (39.0-77.0); PLATELET COUNT 159 10^3/UL (140-415); RED BLOOD COUNT 3.88 10^6/ul (4.20-5.40); RED CELL DISTRIBUTION WIDTH 15.2 % (11.5-14.5)
[2017-10-23 06:42] LABS: WHITE BLOOD COUNT 5.3 10^3/ul (4.8-10.8)
[2017-10-23 07:07] LABS: MAGNESIUM 2.4 mg/dl (1.7-2.5)
[2017-10-23 07:07] LABS: ANION GAP 14 (8-16); BLOOD UREA NITROGEN 19 mg/dl (7-20); CALCIUM 8.3 mg/dl (8.4-10.2); CARBON DIOXIDE 29 mmol/L (21-31); CHLORIDE 101 mmol/L (97-110); CREATININE 1.38 mg/dl (0.44-1.00); GLUCOSE 106 mg/dl (70-220); POTASSIUM 4.1 mmol/L (3.5-5.1); SODIUM 140 mmol/L (135-144)
[2017-10-23] MEDS: RANOLAZINE (SR) 500 MG TAB PO ×2 (08:10→21:25)
[2017-10-23] MEDS: FAMOTIDINE 20 MG TAB PO (08:10)
[2017-10-23] MEDS: SACUBITRIL/VALSARTAN (24mg-26mg) TABLET PO ×2 (08:10→21:25)
[2017-10-23] MEDS: AMIODARONE 200 MG TAB PO ×3 (08:10→21:17)
[2017-10-23] MEDS: NYSTATIN 30 GM POWDER BTL TOP ×2 (08:11→21:28)
[2017-10-23] MEDS: INSULIN ASPART [NOVOLOG] 3 ML PEN SC ×7 (08:21→21:00)
[2017-10-23] MEDS: SPIRONOLACTONE 25 MG TAB PO (16:24)
[2017-10-23] MEDS: RIVAROXABAN 20 MG TABLET PO (17:49)
[2017-10-23] MEDS: BUMETANIDE 3 MG in DEXTROSE 5% 18 ML IV (17:50)
[2017-10-23] MEDS: MONTELUKAST 10 MG TAB PO (21:17)
[2017-10-23] MEDS: INSULIN GLARGINE [LANtus] 3 ML PEN SC (21:27)
[2017-10-24] MEDS: IPRATROPIUM (NEB) 0.5 MG/2.5 ML AMP HHN ×4 (00:15→20:05)
[2017-10-24] MEDS: LEVALBUTEROL (NEB) 0.63 MG/3 ML AMP HHN ×4 (00:15→20:06)
[2017-10-24] MEDS: ACCU-CHEK XX (02:00)
[2017-10-24 06:04] LABS: ADD MAN DIFF? NO
[2017-10-24 06:10] LABS: WHITE BLOOD COUNT 5.9 10^3/ul (4.8-10.8)
[2017-10-24 06:10] LABS: BASOPHILS % 0.2 % (0.0-2.0); EOSINOPHILS # 0.1 10^3/ul (0.0-0.5); EOSINOPHILS % 1.7 % (0.0-7.0); HEMATOCRIT 35.6 % (37.0-47.0); HEMOGLOBIN 11.3 g/dl (12.0-16.0); LYMPHOCYTES # 1.5 10^3/ul (0.8-2.9); LYMPHOCYTES % 25.9 % (15.0-51.0); MEAN CORPUSCULAR HEMOGLOBIN 29.1 pg (29.0-33.0); MEAN CORPUSCULAR HGB CONC 31.7 g/dl (32.0-37.0); MEAN CORPUSCULAR VOLUME 91.8 fl (82.0-101.0); MEAN PLATELET VOLUME 12.7 fl (7.4-10.4); MONOCYTE # 0.7 10^3/ul (0.3-0.9); MONOCYTES % 11.1 % (0.0-11.0); NEUTROPHIL # 3.6 10^3/ul (1.6-7.5); NEUTROPHILS % 60.6 % (39.0-77.0); PLATELET COUNT 114 10^3/UL (140-415); RED BLOOD COUNT 3.88 10^6/ul (4.20-5.40); RED CELL DISTRIBUTION WIDTH 15.2 % (11.5-14.5)
[2017-10-24 06:50] LABS: MAGNESIUM 2.1 mg/dl (1.7-2.5)
[2017-10-24 07:09] LABS: ANION GAP 18 (8-16); BLOOD UREA NITROGEN 19 mg/dl (7-20); CARBON DIOXIDE 26 mmol/L (21-31); CHLORIDE 98 mmol/L (97-110); CREATININE 1.31 mg/dl (0.44-1.00); GLUCOSE 133 mg/dl (70-220); POTASSIUM 5.3 mmol/L (3.5-5.1); SODIUM 137 mmol/L (135-144)
[2017-10-24] MEDS: INSULIN ASPART [NOVOLOG] 3 ML PEN SC ×7 (07:37→21:00)
[2017-10-24] MEDS: SACUBITRIL/VALSARTAN (24mg-26mg) TABLET PO ×2 (08:08→20:11)
[2017-10-24] MEDS: RANOLAZINE (SR) 500 MG TAB PO ×2 (08:08→22:26)
[2017-10-24] MEDS: BUMETANIDE 1 MG TAB PO (08:09)
[2017-10-24] MEDS: AMIODARONE 200 MG TAB PO ×3 (08:09→22:00)
[2017-10-24] MEDS: SPIRONOLACTONE 25 MG TAB PO (08:09)
[2017-10-24] MEDS: NYSTATIN 30 GM POWDER BTL TOP ×2 (08:10→21:00)
[2017-10-24] MEDS: FAMOTIDINE 20 MG TAB PO (08:10)
[2017-10-24] MEDS: CEPASTAT LOZENGE MT (11:09)
[2017-10-24] MEDS: GUAIFENESIN/DM (SR) TAB PO (16:36)
[2017-10-24] MEDS: RIVAROXABAN 20 MG TABLET PO (18:23)
[2017-10-24] MEDS ORDERED: SPIRONOLACTONE 25 MG TAB PO (19:30)
[2017-10-24] MEDS: MONTELUKAST 10 MG TAB PO (20:11)
[2017-10-24] MEDS: INSULIN GLARGINE [LANtus] 3 ML PEN SC (21:50)
[2017-10-25] MEDS: ACCU-CHEK XX ×2 (02:00→21:37)
[2017-10-25 06:28] LABS: ANION GAP 17 (8-16); BLOOD UREA NITROGEN 20 mg/dl (7-20); CALCIUM 8.7 mg/dl (8.4-10.2); CARBON DIOXIDE 29 mmol/L (21-31); CHLORIDE 97 mmol/L (97-110); CREATININE 1.43 mg/dl (0.44-1.00); GLUCOSE 128 mg/dl (70-220); MAGNESIUM 2.1 mg/dl (1.7-2.5); PHOSPHORUS 3.7 mg/dl (2.5-4.9); POTASSIUM 4.1 mmol/L (3.5-5.1); SODIUM 139 mmol/L (135-144)
[2017-10-25] MEDS: INSULIN ASPART [NOVOLOG] 3 ML PEN SC ×7 (08:20→21:00)
[2017-10-25] MEDS: SACUBITRIL/VALSARTAN (24mg-26mg) TABLET PO ×2 (08:59→20:29)
[2017-10-25] MEDS: AMIODARONE 200 MG TAB PO ×2 (09:00→20:28)
[2017-10-25] MEDS: FAMOTIDINE 20 MG TAB PO (09:00)
[2017-10-25] MEDS: NYSTATIN 30 GM POWDER BTL TOP ×2 (09:00→21:35)
[2017-10-25] MEDS: BUMETANIDE 1 MG TAB PO (09:00)
[2017-10-25] MEDS: RANOLAZINE (SR) 500 MG TAB PO ×2 (09:00→20:29)
[2017-10-25] MEDS: GUAIFENESIN LA 600 MG TABSR PO ×2 (09:00→20:46)
[2017-10-25] MEDS: GUAIFENESIN/DM (SR) TAB PO (09:03)
[2017-10-25] MEDS: IPRATROPIUM (NEB) 0.5 MG/2.5 ML AMP HHN ×2 (15:41→20:00)
[2017-10-25] MEDS: LEVALBUTEROL (NEB) 0.63 MG/3 ML AMP HHN ×2 (15:41→20:01)
[2017-10-25] MEDS: RIVAROXABAN 20 MG TABLET PO (17:57)
[2017-10-25] MEDS: CEPASTAT LOZENGE MT (19:49)
[2017-10-25] MEDS: MONTELUKAST 10 MG TAB PO (20:29)
[2017-10-25] MEDS: INSULIN GLARGINE [LANtus] 3 ML PEN SC (20:37)
[2017-10-26 06:15] LABS: ANION GAP 17 (8-16); BLOOD UREA NITROGEN 20 mg/dl (7-20); CALCIUM 8.9 mg/dl (8.4-10.2); CARBON DIOXIDE 28 mmol/L (21-31); CHLORIDE 97 mmol/L (97-110); CREATININE 1.42 mg/dl (0.44-1.00); GLUCOSE 116 mg/dl (70-220); PHOSPHORUS 4.2 mg/dl (2.5-4.9); SODIUM 138 mmol/L (135-144)
[2017-10-26] MEDS: INSULIN ASPART [NOVOLOG] 3 ML PEN SC ×4 (07:50→12:41)
[2017-10-26] MEDS: SACUBITRIL/VALSARTAN (24mg-26mg) TABLET PO (08:35)
[2017-10-26] MEDS: AMIODARONE 200 MG TAB PO (08:35)
[2017-10-26] MEDS: BUMETANIDE 1 MG TAB PO (08:35)
[2017-10-26] MEDS: FAMOTIDINE 20 MG TAB PO (08:35)
[2017-10-26] MEDS: RANOLAZINE (SR) 500 MG TAB PO (08:36)
[2017-10-26] MEDS: NYSTATIN 30 GM POWDER BTL TOP (08:37)
== END 2017-10-26 13:24 | disposition home or self-care (01) | DRG 308 ==
LOC: MS1 10-24 16:51 → E/R 12:45 → MS1 10-25 10:17 → TEL 14:43
PROVIDERS: Internal Medicine
DX: I48.0 Paroxysmal atrial fibrillation (principal); I50.43 Acute on chronic combined systolic (congestive) and diastolic (congestive) heart failure; I13.0 Hypertensive heart and chronic kidney disease with heart failure and stage 1 through stage 4 chronic kidney disease, or unspecified chronic kidney disease; Z68.41 Body mass index [BMI] 40.0-44.9, adult; E87.2 Acidosis; N17.9 Acute kidney failure, unspecified; I42.9 Cardiomyopathy, unspecified; E11.22 Type 2 diabetes mellitus with diabetic chronic kidney disease; E11.65 Type 2 diabetes mellitus with hyperglycemia; N18.9 Chronic kidney disease, unspecified; Z91.14 Patient's other noncompliance with medication regimen; I25.10 Atherosclerotic heart disease of native coronary artery without angina pectoris; E66.9 Obesity, unspecified; E78.00 Pure hypercholesterolemia, unspecified; J44.9 Chronic obstructive pulmonary disease, unspecified
CPT/HCPCS: 36415; 71045; 80048; 81003; 82962; 83036; 83605; 83735; 83880; 84100; 84443; 84484; 85025; 87040; 87086; 93306; 93970; 94640; 94664; 96374; 96375; 97110; 97116; 97162; 97530; 99291-25

== ENCOUNTER 2017-10-29 05:40 | Inpatient (IN) | payer MEDICARE, OTHER ==
[2017-10-29 06:32] LABS: ADD MAN DIFF? NO
[2017-10-29 06:39] LABS: WHITE BLOOD COUNT 11.4 10^3/ul (4.8-10.8)
[2017-10-29 06:39] LABS: BASOPHILS % 0.2 % (0.0-2.0); EOSINOPHILS % 0.1 % (0.0-7.0); HEMATOCRIT 41.6 % (37.0-47.0); HEMOGLOBIN 13.3 g/dl (12.0-16.0); LYMPHOCYTES # 1.3 10^3/ul (0.8-2.9); MEAN CORPUSCULAR HEMOGLOBIN 28.9 pg (29.0-33.0); MEAN CORPUSCULAR VOLUME 90.4 fl (82.0-101.0); MEAN PLATELET VOLUME 12.4 fl (7.4-10.4); MONOCYTE # 0.6 10^3/ul (0.3-0.9); MONOCYTES % 5.2 % (0.0-11.0); NEUTROPHIL # 9.5 10^3/ul (1.6-7.5); NEUTROPHILS % 82.7 % (39.0-77.0); PLATELET COUNT 210 10^3/UL (140-415); RED CELL DISTRIBUTION WIDTH 15.6 % (11.5-14.5)
[2017-10-29 07:02] LABS: ALANINE AMINOTRANSFERASE 134 IU/L (13-69); ALKALINE PHOSPHATASE 135 IU/L (42-121); ANION GAP 27 (8-16); ASPARTATE AMINO TRANSFERASE 187 IU/L (15-46); BILIRUBIN,INDIRECT 0.9 mg/dl (0-1.1); BILIRUBIN,TOTAL 0.9 mg/dl (0.2-1.3); BLOOD UREA NITROGEN 27 mg/dl (7-20); CALCIUM 9.4 mg/dl (8.4-10.2); CARBON DIOXIDE 19 mmol/L (21-31); CHLORIDE 95 mmol/L (97-110); CREATININE 1.97 mg/dl (0.44-1.00); GLUCOSE 315 mg/dl (70-220); LIPASE 66 U/L (23-300); SODIUM 135 mmol/L (135-144)
[2017-10-29 07:03] LABS: ALBUMIN 4.5 g/dl (3.3-4.9); ALBUMIN/GLOBULIN RATIO 1.32; TOTAL PROTEIN 7.9 g/dl (6.1-8.1)
[2017-10-29] MEDS: AMIODARONE 200 MG TAB PO ×3 (07:04→20:35)
[2017-10-29] MEDS: BUMETANIDE 1 MG INJ IV ×2 (07:04→18:01)
[2017-10-29 07:07] LABS: POTASSIUM 5.8 mmol/L (3.5-5.1)
[2017-10-29 07:08] LABS: ADD UMIC NO; UR ASCORBIC ACID NEGATIVE (NEGATIVE); UR BILIRUBIN (Dip) NEGATIVE (NEGATIVE); UR BLOOD (Dip) NEGATIVE (NEGATIVE); UR CLARITY CLEAR (CLEAR); UR COLOR AMBER (YELLOW); UR GLUCOSE (Dip) NEGATIVE (NEGATIVE); UR KETONES (Dip) NEGATIVE (NEGATIVE); UR LEUKOCYTE ESTERASE (Dip) NEGATIVE Leu/ul (NEGATIVE); UR NITRITE (Dip) NEGATIVE (NEGATIVE); UR SPECIFIC GRAVITY (Dip) 1.013 (1.003-1.030); UR TOTAL PROTEIN (Dip) NEGATIVE (NEGATIVE); UR UROBILINOGEN (Dip) NEGATIVE (NEGATIVE)
[2017-10-29 07:13] LABS: B-TYPE NATRIURETIC PEPTIDE 8810 PG/ML (0-450); TROPONIN-I 0.021 ng/ml (0.000-0.120)
[2017-10-29 07:29] LABS: MAGNESIUM 2.1 mg/dl (1.7-2.5)
[2017-10-29] MEDS ORDERED: ONDANSETRON 4 MG INJ IV ×2 (07:30→09:00)
[2017-10-29] MEDS ORDERED: ACETAMINOPHEN 325 MG TAB PO (07:30)
[2017-10-29 07:56] LABS: AADO2 Arterial 95.6 mmHg (7.0-24.0); Allen Test ACCEPTAB; Arterial Base Excess -0.6 mmol/L (-3.0-3); Arterial Blood Gas Oxygen Sat 95.9 mmHG (95.0-100.0); Arterial COHb 0.6 % (0.0-3.0); Arterial Fraction of Oxyhgb 95.2 % (93.0-99.0); Arterial HCO3 22.7 mmol/L (22.0-26.0); Arterial MetHb 0.1 % (0.0-1.5); Arterial Total Hemglobin 13.5 g/dl (12.0-18.0); Arterial pCO2 33.6 mmhg (35-45); MODE NASAL CANNULA; Site Right Radial
[2017-10-29] MEDS: AMIODARONE 900 MG in DEXTROSE 5% 482 ML IV (08:28)
[2017-10-29 08:32] LABS: ANION GAP 21 (8-16); BLOOD UREA NITROGEN 28 mg/dl (7-20); CALCIUM 9.1 mg/dl (8.4-10.2); CARBON DIOXIDE 21 mmol/L (21-31); CHLORIDE 99 mmol/L (97-110); CREATININE 1.91 mg/dl (0.44-1.00); GLUCOSE 313 mg/dl (70-220); SODIUM 136 mmol/L (135-144)
[2017-10-29 08:34] LABS: POTASSIUM 5.3 mmol/L (3.5-5.1)
[2017-10-29] MEDS: ALBUTEROL 0.5% (NEB) 2.5 MG/0.5 ML AMP INH (08:46)
[2017-10-29] MEDS ORDERED: HYDROCODONE/APAP (5/325) TAB PO (09:00)
[2017-10-29] MEDS ORDERED: DEXTROSE 50% 50 ML SYRINGE IV ×2 (09:00)
[2017-10-29] MEDS: SACUBITRIL/VALSARTAN (24mg-26mg) TABLET PO (09:00)
[2017-10-29] MEDS ORDERED: GLUCAGON 1 MG INJ IM (09:00)
[2017-10-29] MEDS ORDERED: NACL 0.9% 3 ML SYG IV (09:00)
[2017-10-29] MEDS: RANOLAZINE (SR) 500 MG TAB PO ×2 (09:00→21:23)
[2017-10-29] MEDS ORDERED: GLUCOSE GEL 15 GRAM TUBE BUCCAL (09:00)
[2017-10-29] MEDS ORDERED: GLUCOSE GEL 15 GRAM TUBE PO ×2 (09:00)
[2017-10-29] MEDS ORDERED: DILTIAZEM 25 MG INJ (09:06)
[2017-10-29 09:14] LABS: HAAIG REFLEX REFLEX FILED
[2017-10-29] MEDS ORDERED: DILTIAZEM 50 MG INJ IV (09:30)
[2017-10-29] MEDS: DILTIAZEM 25 MG INJ IV (09:30)
[2017-10-29 10:04] LABS: HEPATITIS B SURFACE ANTIGEN NEGATIVE (NEGATIVE)
[2017-10-29 10:22] LABS: HEPATITIS B CORE ANTIBODY NEGATIVE (NEGATIVE); HEPATITIS C VIRAL ANTIBODY NEGATIVE (NEGATIVE)
[2017-10-29] MEDS: INSULIN ASPART [NOVOLOG] 3 ML PEN SC ×5 (11:50→20:36)
[2017-10-29] MEDS: DIGOXIN 500 MCG INJ IV (12:26)
[2017-10-29] MEDS: HEPARIN 5,000 UNIT/0.5 ML VIAL SC (14:38)
[2017-10-29 15:49] LABS: CK-MB 0.97 ng/ml (0.0-2.4)
[2017-10-29] MEDS ORDERED: RIVAROXABAN 20 MG TABLET PO (17:55)
[2017-10-29] MEDS: RIVAROXABAN 15 MG TABLET PO (18:01)
[2017-10-29] MEDS: METOPROLOL (XL) 25 MG TAB PO (20:35)
[2017-10-29] MEDS: MONTELUKAST 10 MG TAB PO (20:35)
[2017-10-29] MEDS ORDERED: DOXAZOSIN 1 MG TAB PO (21:00)
[2017-10-29] MEDS: INSULIN GLARGINE [LANtus] 3 ML PEN SC (21:06)
[2017-10-30] MEDS: ACCU-CHEK XX (02:00)
[2017-10-30] MEDS: BUMETANIDE 1 MG INJ IV ×2 (05:19→17:56)
[2017-10-30] MEDS: INSULIN ASPART [NOVOLOG] 3 ML PEN SC ×7 (07:54→20:52)
[2017-10-30 08:19] LABS: ADD MAN DIFF? NO
[2017-10-30 08:26] LABS: BASOPHILS % 0.1 % (0.0-2.0); EOSINOPHILS # 0.1 10^3/ul (0.0-0.5); EOSINOPHILS % 0.6 % (0.0-7.0); HEMATOCRIT 35.4 % (37.0-47.0); HEMOGLOBIN 11.5 g/dl (12.0-16.0); LYMPHOCYTES # 1.4 10^3/ul (0.8-2.9); MEAN CORPUSCULAR HEMOGLOBIN 29.1 pg (29.0-33.0); MEAN CORPUSCULAR HGB CONC 32.5 g/dl (32.0-37.0); MEAN CORPUSCULAR VOLUME 89.6 fl (82.0-101.0); MEAN PLATELET VOLUME 12.2 fl (7.4-10.4); MONOCYTES % 8.3 % (0.0-11.0); NEUTROPHIL # 9.3 10^3/ul (1.6-7.5); NEUTROPHILS % 78.4 % (39.0-77.0); PLATELET COUNT 182 10^3/UL (140-415); RED BLOOD COUNT 3.95 10^6/ul (4.20-5.40); RED CELL DISTRIBUTION WIDTH 15.4 % (11.5-14.5)
[2017-10-30 08:26] LABS: WHITE BLOOD COUNT 11.9 10^3/ul (4.8-10.8)
[2017-10-30] MEDS: SACUBITRIL/VALSARTAN (24mg-26mg) TABLET PO (08:28)
[2017-10-30] MEDS: RANOLAZINE (SR) 500 MG TAB PO ×2 (08:28→20:35)
[2017-10-30] MEDS: AMIODARONE 200 MG TAB PO ×3 (08:29→20:35)
[2017-10-30] MEDS: METOPROLOL (XL) 25 MG TAB PO ×2 (08:29→20:35)
[2017-10-30 08:44] LABS: ALANINE AMINOTRANSFERASE 147 IU/L (13-69); ALBUMIN 3.8 g/dl (3.3-4.9); ALBUMIN/GLOBULIN RATIO 1.15; ALKALINE PHOSPHATASE 104 IU/L (42-121); ANION GAP 18 (8-16); ASPARTATE AMINO TRANSFERASE 121 IU/L (15-46); BILIRUBIN,INDIRECT 0.7 mg/dl (0-1.1); BILIRUBIN,TOTAL 0.7 mg/dl (0.2-1.3); BLOOD UREA NITROGEN 30 mg/dl (7-20); CALCIUM 8.8 mg/dl (8.4-10.2); CARBON DIOXIDE 30 mmol/L (21-31); CHLORIDE 94 mmol/L (97-110); CREATININE 1.93 mg/dl (0.44-1.00); GLUCOSE 71 mg/dl (70-220); MAGNESIUM 2.1 mg/dl (1.7-2.5); POTASSIUM 3.7 mmol/L (3.5-5.1); SODIUM 138 mmol/L (135-144); TOTAL PROTEIN 7.1 g/dl (6.1-8.1)
[2017-10-30] MEDS: RIVAROXABAN 15 MG TABLET PO (17:56)
[2017-10-30] MEDS: MONTELUKAST 10 MG TAB PO (20:35)
[2017-10-30] MEDS: INSULIN GLARGINE [LANtus] 3 ML PEN SC (20:52)
[2017-10-31] MEDS: ACCU-CHEK XX (02:05)
[2017-10-31] MEDS: BUMETANIDE 1 MG INJ IV ×2 (06:20→18:18)
[2017-10-31] MEDS: INSULIN ASPART [NOVOLOG] 3 ML PEN SC ×7 (07:49→20:34)
[2017-10-31] MEDS: AMIODARONE 200 MG TAB PO ×3 (08:54→20:48)
[2017-10-31] MEDS: SACUBITRIL/VALSARTAN (24mg-26mg) TABLET PO ×2 (08:54→09:02)
[2017-10-31] MEDS: RANOLAZINE (SR) 500 MG TAB PO ×2 (08:54→20:46)
[2017-10-31] MEDS: METOPROLOL (XL) 25 MG TAB PO ×2 (08:59→20:49)
[2017-10-31 09:37] LABS: ADD MAN DIFF? NO
[2017-10-31 09:43] LABS: BASOPHILS % 0.2 % (0.0-2.0); EOSINOPHILS # 0.1 10^3/ul (0.0-0.5); HEMATOCRIT 34.5 % (37.0-47.0); HEMOGLOBIN 11.1 g/dl (12.0-16.0); LYMPHOCYTES # 1.3 10^3/ul (0.8-2.9); LYMPHOCYTES % 15.6 % (15.0-51.0); MEAN CORPUSCULAR HEMOGLOBIN 29.5 pg (29.0-33.0); MEAN CORPUSCULAR HGB CONC 32.2 g/dl (32.0-37.0); MEAN CORPUSCULAR VOLUME 91.8 fl (82.0-101.0); MEAN PLATELET VOLUME 12.7 fl (7.4-10.4); MONOCYTE # 0.7 10^3/ul (0.3-0.9); MONOCYTES % 9.1 % (0.0-11.0); NEUTROPHILS % 73.5 % (39.0-77.0); PLATELET COUNT 173 10^3/UL (140-415); RED BLOOD COUNT 3.76 10^6/ul (4.20-5.40); RED CELL DISTRIBUTION WIDTH 15.4 % (11.5-14.5)
[2017-10-31 09:43] LABS: WHITE BLOOD COUNT 8.1 10^3/ul (4.8-10.8)
[2017-10-31 10:27] LABS: ANION GAP 13 (8-16); BLOOD UREA NITROGEN 30 mg/dl (7-20); CALCIUM 8.5 mg/dl (8.4-10.2); CARBON DIOXIDE 30 mmol/L (21-31); CHLORIDE 98 mmol/L (97-110); GLUCOSE 135 mg/dl (70-220); MAGNESIUM 2.1 mg/dl (1.7-2.5); POTASSIUM 3.8 mmol/L (3.5-5.1); SODIUM 137 mmol/L (135-144)
[2017-10-31] MEDS: RIVAROXABAN 15 MG TABLET PO (18:18)
[2017-10-31] MEDS: INSULIN GLARGINE [LANtus] 3 ML PEN SC (20:35)
[2017-10-31] MEDS: MONTELUKAST 10 MG TAB PO (20:46)
[2017-11-01] MEDS: ACCU-CHEK XX (02:03)
[2017-11-01] MEDS: METOPROLOL (XL) 25 MG TAB PO ×3 (03:29→20:55)
[2017-11-01] MEDS: BUMETANIDE 1 MG INJ IV ×3 (06:19→18:26)
[2017-11-01] MEDS: INSULIN ASPART [NOVOLOG] 3 ML PEN SC ×7 (07:55→20:58)
[2017-11-01] MEDS: AMIODARONE 200 MG TAB PO ×3 (08:23→20:54)
[2017-11-01] MEDS: RANOLAZINE (SR) 500 MG TAB PO ×2 (08:23→20:53)
[2017-11-01 09:17] LABS: ANION GAP 13 (8-16); BLOOD UREA NITROGEN 32 mg/dl (7-20); CALCIUM 8.7 mg/dl (8.4-10.2); CARBON DIOXIDE 30 mmol/L (21-31); CHLORIDE 100 mmol/L (97-110); CREATININE 1.69 mg/dl (0.44-1.00); GLUCOSE 81 mg/dl (70-220); MAGNESIUM 2.1 mg/dl (1.7-2.5); PHOSPHORUS 4.2 mg/dl (2.5-4.9); POTASSIUM 4.4 mmol/L (3.5-5.1); SODIUM 139 mmol/L (135-144)
[2017-11-01] MEDS: MAGNESIUM HYDROXIDE 30ML CUP PO (10:12)
[2017-11-01] MEDS: DIGOXIN 500 MCG INJ IV (10:15)
[2017-11-01] MEDS: RIVAROXABAN 15 MG TABLET PO (17:32)
[2017-11-01] MEDS: MONTELUKAST 10 MG TAB PO (20:53)
[2017-11-01] MEDS: INSULIN GLARGINE [LANtus] 3 ML PEN SC (21:08)
[2017-11-02] MEDS: ACCU-CHEK XX (02:00)
[2017-11-02] MEDS: LORAZEPAM 0.5 MG TAB PO (04:37)
[2017-11-02] MEDS: BUMETANIDE 1 MG INJ IV ×2 (05:35→17:00)
[2017-11-02 07:21] LABS: DIGOXIN 0.7 ng/ml (1.0-2.0)
[2017-11-02] MEDS: INSULIN ASPART [NOVOLOG] 3 ML PEN SC ×7 (07:45→22:00)
[2017-11-02 07:48] LABS: ALANINE AMINOTRANSFERASE 79 IU/L (13-69); ALBUMIN 3.6 g/dl (3.3-4.9); ALKALINE PHOSPHATASE 89 IU/L (42-121); ANION GAP 14 (8-16); ASPARTATE AMINO TRANSFERASE 40 IU/L (15-46); BILIRUBIN,INDIRECT 0.4 mg/dl (0-1.1); BILIRUBIN,TOTAL 0.4 mg/dl (0.2-1.3); BLOOD UREA NITROGEN 28 mg/dl (7-20); CALCIUM 8.7 mg/dl (8.4-10.2); CARBON DIOXIDE 31 mmol/L (21-31); CHLORIDE 98 mmol/L (97-110); CREATININE 1.54 mg/dl (0.44-1.00); GLUCOSE 104 mg/dl (70-220); MAGNESIUM 2.3 mg/dl (1.7-2.5); POTASSIUM 4.3 mmol/L (3.5-5.1); SODIUM 139 mmol/L (135-144); TOTAL PROTEIN 6.6 g/dl (6.1-8.1)
[2017-11-02 07:56] LABS: PHOSPHORUS 3.8 mg/dl (2.5-4.9)
[2017-11-02] MEDS: DOCUSATE SODIUM 100 MG CAP PO (08:48)
[2017-11-02] MEDS: SACUBITRIL/VALSARTAN (24mg-26mg) TABLET PO (08:48)
[2017-11-02] MEDS: ACETAMINOPHEN 325 MG TAB PO (08:48)
[2017-11-02] MEDS: AMIODARONE 200 MG TAB PO ×3 (08:48→22:02)
[2017-11-02] MEDS: RANOLAZINE (SR) 500 MG TAB PO ×2 (08:48→22:01)
[2017-11-02] MEDS: METOPROLOL (XL) 25 MG TAB PO ×2 (08:49→22:01)
[2017-11-02] MEDS: MAGNESIUM HYDROXIDE 30ML CUP PO (13:14)
[2017-11-02] MEDS: RIVAROXABAN 15 MG TABLET PO (17:00)
[2017-11-02] MEDS: MONTELUKAST 10 MG TAB PO (22:01)
[2017-11-02] MEDS: INSULIN GLARGINE [LANtus] 3 ML PEN SC (22:20)
[2017-11-03] MEDS: ACCU-CHEK XX (02:00)
[2017-11-03] MEDS: BUMETANIDE 1 MG INJ IV (05:27)
[2017-11-03] MEDS: BISACODYL (EC) 5 MG TAB PO (05:27)
[2017-11-03 07:13] LABS: ADD MAN DIFF? NO
[2017-11-03 07:20] LABS: WHITE BLOOD COUNT 5.1 10^3/ul (4.8-10.8)
[2017-11-03 07:20] LABS: BASOPHILS % 0.2 % (0.0-2.0); EOSINOPHILS # 0.2 10^3/ul (0.0-0.5); EOSINOPHILS % 2.9 % (0.0-7.0); HEMATOCRIT 36.2 % (37.0-47.0); HEMOGLOBIN 11.5 g/dl (12.0-16.0); LYMPHOCYTES # 1.5 10^3/ul (0.8-2.9); LYMPHOCYTES % 28.6 % (15.0-51.0); MEAN CORPUSCULAR HEMOGLOBIN 29.2 pg (29.0-33.0); MEAN CORPUSCULAR HGB CONC 31.8 g/dl (32.0-37.0); MEAN CORPUSCULAR VOLUME 91.9 fl (82.0-101.0); MEAN PLATELET VOLUME 12.1 fl (7.4-10.4); MONOCYTE # 0.7 10^3/ul (0.3-0.9); MONOCYTES % 13.9 % (0.0-11.0); NEUTROPHIL # 2.8 10^3/ul (1.6-7.5); NEUTROPHILS % 54.2 % (39.0-77.0); PLATELET COUNT 176 10^3/UL (140-415); RED BLOOD COUNT 3.94 10^6/ul (4.20-5.40); RED CELL DISTRIBUTION WIDTH 15.1 % (11.5-14.5)
[2017-11-03] MEDS: INSULIN ASPART [NOVOLOG] 3 ML PEN SC ×4 (07:38→12:09)
[2017-11-03 07:41] LABS: ANION GAP 12 (8-16); BLOOD UREA NITROGEN 23 mg/dl (7-20); CALCIUM 8.7 mg/dl (8.4-10.2); CARBON DIOXIDE 32 mmol/L (21-31); CHLORIDE 100 mmol/L (97-110); CREATININE 1.45 mg/dl (0.44-1.00); GLUCOSE 94 mg/dl (70-220); MAGNESIUM 2.4 mg/dl (1.7-2.5); PHOSPHORUS 3.7 mg/dl (2.5-4.9); POTASSIUM 3.9 mmol/L (3.5-5.1); SODIUM 140 mmol/L (135-144)
[2017-11-03] MEDS: SACUBITRIL/VALSARTAN (24mg-26mg) TABLET PO (08:16)
[2017-11-03] MEDS: RANOLAZINE (SR) 500 MG TAB PO (08:16)
[2017-11-03] MEDS: METOPROLOL (XL) 25 MG TAB PO (08:18)
[2017-11-03] MEDS: AMIODARONE 200 MG TAB PO (08:18)
[2017-11-03] MEDS ORDERED: BUMETANIDE 1 MG TAB PO (18:00)
== END 2017-11-03 14:35 | DRG 308 ==
LOC: E/R 05:40 → TEL 07:28
PROC: 5A09357 Assistance with Respiratory Ventilation, Less than 24 Consecutive Hours, Continuous Positive Airway Pressure (ICD-10-PCS; principal; 2017-10-29)
DX: I48.91 Unspecified atrial fibrillation (principal); I50.23 Acute on chronic systolic (congestive) heart failure; J96.01 Acute respiratory failure with hypoxia; I13.0 Hypertensive heart and chronic kidney disease with heart failure and stage 1 through stage 4 chronic kidney disease, or unspecified chronic kidney disease; N17.9 Acute kidney failure, unspecified; Z68.41 Body mass index [BMI] 40.0-44.9, adult; N18.4 Chronic kidney disease, stage 4 (severe); E11.22 Type 2 diabetes mellitus with diabetic chronic kidney disease; E87.5 Hyperkalemia; E11.65 Type 2 diabetes mellitus with hyperglycemia; I25.5 Ischemic cardiomyopathy; E66.01 Morbid (severe) obesity due to excess calories; K76.0 Fatty (change of) liver, not elsewhere classified; I25.10 Atherosclerotic heart disease of native coronary artery without angina pectoris; Z79.4 Long term (current) use of insulin; Z79.02 Long term (current) use of antithrombotics/antiplatelets; Z91.11 Patient's noncompliance with dietary regimen; Z91.14 Patient's other noncompliance with medication regimen; Z95.5 Presence of coronary angioplasty implant and graft
CPT/HCPCS: 36415; 36600; 71045; 76705; 76775; 80048; 80053; 80162; 81003; 82553; 82803; 82962; 83690; 83735; 83880; 84100; 84484; 85025; 86704; 86709; 86803; 87081; 87340; 93005; 94644; 94660; 96374; 97110; 97116; 97162; 97530; 99291-25